=== PATIENT | female | born 1985 | race Caucasian/White ===

== ENCOUNTER 2021-11-29 08:22 | Day surgery (SDC) | payer OTHER ==
[~2021-11-29] VITALS: Ht 157.5 cm; Wt 69.6 kg
[~2021-11-29 08:22] MED LIST: SULTRIDS PO
--- NOTE | 2021-11-29 10:02 | NUR ---
11/29/21 DIONNE ROACH 0.05MG OF EPI (1MG/1ML) ADDED TO 10MLS OF BUPIVACAINE 0.5% TO CREATE A LOCAL SOLUTION OF BUPIVACAINE 0.5% WITH EPI 1:200,000. LOCAL POURED ONTO STERILE FIELD FOR USE DURING CASE.
== END 2021-11-29 11:45 | disposition home or self-care (01) ==
LOC: ORSCSDS 08:22
PROVIDERS: Obstetrics & Gynecology
PROC: 0UBF4ZX Excision of Cul-de-sac, Percutaneous Endoscopic Approach, Diagnostic (ICD-10-PCS; principal; 2021-11-29 09:45)
PROC: 0UT74ZZ Resection of Bilateral Fallopian Tubes, Percutaneous Endoscopic Approach (ICD-10-PCS; principal; 2021-11-29 09:45)
DX: Z30.2 Encounter for sterilization (principal); N83.8 Other noninflammatory disorders of ovary, fallopian tube and broad ligament; Q50.5 Embryonic cyst of broad ligament; N80.3 Endometriosis of pelvic peritoneum
CPT/HCPCS: 88302; J0171; J0690; J1100; J1885; J2250; J2405; J2704; J3010; J7120

== ENCOUNTER → 2022-05-23 | Outpatient (CLI) | payer OTHER ==
[2022-05-23 22:08] LABS: Albumin/Globulin Ratio 1.5 (0.8-1.8); Alk Phos 43 U/L (50-136); Anion Gap 7 mmol/L (6-16); Aspartate Aminotrans (AST/SGOT 16 U/L (12-37); Bilirubin, Total 0.7 mg/dL (0.1-1.0); Blood Urea Nitrogen 13 mg/dL (8-24); Bun/Creatinine Ratio 23.6 (12.0-20.0); CHOL/HDL RATIO 3.2; CO2, Blood 25 mmol/L (21-32); Calcium, Blood 8.9 mg/dL (8.5-10.1); Chloride, Blood 106 mmol/L (98-108); Cholesterol 202 mg/dL (50-200); Creatinine, Blood 0.55 mg/dL (0.40-1.00); Ferritin, Serum 107 ng/mL (8-252); Globulin, Blood 2.7 g/dL (2.2-4.0); Glomerular Filtration Rate 122 (60-); Glucose, Blood 89 mg/dL (70-99); HDL Cholesterol 64 mg/dL (>39); Iron Serum 87 ug/dL (50-170); Low Density Lipoprotein Chol 127 mg/dL (0-110); Percent Saturation 29.9 % (15.0-50.0); Potassium, Blood 3.8 mmol/L (3.5-5.5); Sodium, Blood 138 mmol/L (136-145); Total Iron Binding Capacity 291 ug/dL (250-450); Total Protein, Blood 6.7 g/dL (6.4-8.2); Triglycerides 53 mg/dL (30-140); Very Low Density Lipoprot Chol 10 mg/dL (6-28)
[2022-05-23 22:17] LABS: Alanine Aminotransfer (ALT/SGP 26 U/L (12-78)
== END | disposition home or self-care (01) ==
LOC: LAB SHORT 17:35
PROVIDERS: Nurse Practitioner Family
DX: R10.9 Unspecified abdominal pain (principal); R45.86 Emotional lability
CPT/HCPCS: 80053; 80061; 82728; 83540; 83550; 84443

== ENCOUNTER → 2024-02-03 | Outpatient (CLI) | payer OTHER | END | disposition home or self-care (01) | LOC: LAB 09:58 → LAB SHORT 09:58 | DX: N39.0 Urinary tract infection, site not specified (principal) | CPT/HCPCS: 87077; 87086; 87186 ==